=== PATIENT | female | born 1935 ===

== ENCOUNTER → 2017-03-14 | Outpatient (CLI) | payer MEDICARE, OTHER ==
[~2017-03-14] MED LIST: AZELASTINE205.5 MCG/ NOSE; BYSTOLIC2.5 MG PO; COZAAR25 MG PO; FLOVENT 110 M110 MCG INH; IMDUR30 MG PO; K-TAB 10MEQ10 MEQ PO; LASIX20 MG PO; LEVOTHROID (SY50 MCG PO; MULTI VITAMIN1 EACH PO; PRADAXA150 MG PO; PRILOSEC20 MG PO; PROAIR HFA8.5 GM INH; RESTORIL15 MG PO; SINGULAIR10 MG PO; TRULICITY0.75 MG/0. SUB-Q; TYLENOL ARTHRI650 MG PO; VITAMIN D1000 UNIT PO; WELLBUTRIN XL300 M2 PO; ZOCOR40 MG PO
[2017-03-14 17:10] LABS: ANION GAP 9.9 (10.0-19.0); CREATININE 0.9 mg/dL (0.5-1.1); POTASSIUM 3.9 mMol/L (3.7-5.1)
== END ==
LOC: LNHI 16:30
PROVIDERS: Internal Medicine Interventional Cardiology
DX: I10 Essential (primary) hypertension (principal); E78.5 Hyperlipidemia, unspecified; E03.9 Hypothyroidism, unspecified